=== PATIENT | male | born 1955 | race Caucasian/White ===

== ENCOUNTER 2017-01-15 20:13 | Emergency (ER) | payer SELFPAY ==
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
== END 2017-01-15 22:47 | disposition home or self-care (01) ==
LOC: ER 20:13
DX: S16.1XXA Strain of muscle, fascia and tendon at neck level, initial encounter (principal); S90.511A Abrasion, right ankle, initial encounter; S60.221A Contusion of right hand, initial encounter; S90.512A Abrasion, left ankle, initial encounter; V44.5XXA Car driver injured in collision with heavy transport vehicle or bus in traffic accident, initial encounter; Y92.411 Interstate highway as the place of occurrence of the external cause
CPT/HCPCS: 72050; 99283; 99284